=== PATIENT | female | born 1960 | race Caucasian/White ===

== ENCOUNTER 2021-10-23 08:52 | Outpatient (RCR) | payer MEDICARE, MEDICAID, SELFPAY ==
--- NOTE | ~2021-10-23 | XR_ITS ---
EXAMINATION: XR HAND, LEFT CLINICAL INFORMATION: Nonhealing wound 3rd finger. COMPARISON: None TECHNIQUE: PA, lateral, and oblique views of the left hand. 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 There may be flexion deformity old trauma to the distal phalanx of the 4th finger. There may be trauma to the soft tissues over the distal tuft of the 4th finger. The distal tuft of the 3rd finger in the area indicated by arrow is normal-appearing without evidence of soft tissue trauma or soft tissue foreign body. No fracture of the distal tuft of the 3rd finger is seen. There are scattered soft tissue calcifications. There may be an old ulnar styloid fracture. The bones are osteopenic. XR/XR hand LT min 3V IMPRESSION: Probable old trauma to the distal phalanges of the 4th and 5th fingers. Normal-appearing distal phalanx of the 3rd finger.
== END 2021-11-09 09:02 | disposition home or self-care (01) ==
LOC: HO.WCC 08:52
PROVIDERS: Visit Provider Physician Assistant
DX: E11.621 Type 2 diabetes mellitus with foot ulcer (principal); L97.411 Non-pressure chronic ulcer of right heel and midfoot limited to breakdown of skin; E11.622 Type 2 diabetes mellitus with other skin ulcer; L98.499 Non-pressure chronic ulcer of skin of other sites with unspecified severity; E11.22 Type 2 diabetes mellitus with diabetic chronic kidney disease; E11.65 Type 2 diabetes mellitus with hyperglycemia; E11.40 Type 2 diabetes mellitus with diabetic neuropathy, unspecified; E11.51 Type 2 diabetes mellitus with diabetic peripheral angiopathy without gangrene; N18.6 End stage renal disease; I25.10 Atherosclerotic heart disease of native coronary artery without angina pectoris; Z86.718 Personal history of other venous thrombosis and embolism; Z89.422 Acquired absence of other left toe(s); Z89.421 Acquired absence of other right toe(s); Z99.2 Dependence on renal dialysis; Z79.4 Long term (current) use of insulin
CPT/HCPCS: 73130; 97597; 99213